=== PATIENT | male | born 2000 | race Two or more races ===

== ENCOUNTER 2023-09-25 11:48 | Observation (INO) ==
--- NOTE | 2023-09-25 12:10 | DR.EXTPAIN ---
HPI Time seen Time Seen by Provider: 09/25/23 12:09 PCP Primary Care Physician: KARAN Complaint/Symptoms Chief Complaint Doctor Comments: 22 y/o H male presents for evaluation. Patient hit his left great toe with a lawnmower prior to arrival. Was wearing boots.. Has a significant wound to the left great toe, missing tissue. No other injuries. No recent tetanus shot. Denies recent illness.. Last ate approximately 1 hour ago. Chief Complaint:: Patient does not speak estonian, has a co worker at bedside translating. Patient states that his foot got caught in the lawnmower blade, cut his left great toe through his shoe. toe is mangled and bleeding. COVID-19 Coronavirus risk:travel/contact w/high risk person: No Has patient experienced Coronavirus symptoms: No Nurses notes reviewed Nurses Notes Review: Yes Source History Provided: Patient and Friend Mode of arrival Mode of Arrival: Wheelchair Timing Onset of Chief Complaint: 09/25/23 PMH PMH Past Medical History: No Past Surgical History: No Surgical History: No History Family History History of Family Medical Conditions: No Social History Does patient currently use any type of tobacco product: No Alcohol Use: None Do you use any recreational Drugs:: No Lives With: Other Lives Where: [place] Travel Risk Coronavirus risk:travel/contact w/high risk person: No Has patient experienced Coronavirus symptoms: No Infectious screening Have you traveled outside the country in the last 6 months?: Yes Travel History Location: came here from [place] 2 months ago Isolation: Standard ROS Review of Systems Constitutional: No Symptoms Reported Eyes: No Symptoms Reported ENTM: No Symptoms Reported Respiratoy: No Symptoms Reported Cardiovascular: No Symptoms Reported Gastrointestinal/Abdominal: No Symptoms Reported Genitourinary: No Symptoms Reported Neurological: No Symptoms Reported Musculoskeletal: See HPI Integumentary: No Symptoms Reported Hematologic/Lymphatic: No Symptoms Reported All Other Systems: Reviewed and Negative PE Vital Signs Vitals: Vital Signs Temperature 98.2 F Pulse Rate 52 Respiratory Rate 20 Respiratory Rate 20 Blood Pressure 115/68 O2 Sat by Pulse Oximetry 100 General General Appearance: Alert and In No Apparent Distress Eyes Eye exam: PERRL and EOMI ENT ENT Exam: Mucous Membranes Moist Neck Neck Exam: Normal Inspection Respiratory Respiratory Exam: Normal Lung Sounds Bilat; negative Accessory Muscle Use or Respiratory Distress Cardiovascular Cardiovascular Exam: Regular Rate, Normal Rhythm and Normal Heart Sounds Neurological Neurological Exam: Alert, Oriented X3 and CN II-XII Intact; negative Motor Sensory Deficit Skin Skin Exam: Warm and Dry Other Exam Other Exam: L foot - + 3 cm round open wound of dorsal great toe, scalloped out. + bone exposed. COURSE Treatment Treatment: 22-year-old male hit his left great toe with a lawnmower. Has a large loss of tissue of the dorsal aspect of the left great toe. X-ray obtained. Large amount of bone loss of the distal phalanx, proximal phalanx intact. IV started. Patient given IV fluids, IV morphine/Zofran. Will check baseline labs. Consult with podiatry, Dr. Ku. 1404 - Dr Ku here, will be taking the patient to the OR. 1448 - will be admitted after OR. ROR Labs Reviewed Laboratory Results Reviewed?: Yes 09/25/23 12:35 09/25/23 12:35 Laboratory: WBC 7.1 X10^3/uL (3.6-10.0) 09/25/23 12:35 RBC 4.94 X10^6/uL (4.7-6.0) 09/25/23 12:35 Hgb 14.7 g/dL (13.5-18.0) 09/25/23 12:35 Hct 43.3 % (42.0-54.0) 09/25/23 12:35 MCV 87.6 fL (80.0-100.0) 09/25/23 12:35 MCH 29.7 pg (27.0-34.0) 09/25/23 12:35 MCHC 33.9 g/dL (33.0-35.0) 09/25/23 12:35 RDW 13.2 % (11.6-16.5) 09/25/23 12:35 Plt Count 165 X10^3/uL (150.0-450.0) 09/25/23 12:35 MPV 9.5 fL (7.4-11.0) 09/25/23 12:35 Neut % (Auto) 66.0 % (42.0-75.0) 09/25/23 12:35 Lymph % (Auto) 23.9 % (21.0-51.0) 09/25/23 12:35 Pepin % (Auto) 6.7 % (0.0-13.0) 09/25/23 12:35 Eos % (Auto) 3.2 % (0.9-2.9) H 09/25/23 12:35 Baso % (Auto) 0.2 % (0.2-1.0) 09/25/23 12:35 Neut # (Auto) 4.7 x10^3/uL (2.2-4.8) 09/25/23 12:35 Lymph # (Auto) 1.7 X10^3/uL (1.3-2.9) 09/25/23 12:35 Pepin # (Auto) 0.5 x10^3/uL (0.3-0.8) 09/25/23 12:35 Eos # (Auto) 0.2 x10^3/uL (0.0-0.2) 09/25/23 12:35 Baso # (Auto) 0.0 X10^3/uL (0.0-0.1) 09/25/23 12:35 Absolute Nucleated RBC 0.3 /100WBC 09/25/23 12:35 Sodium 139 mmol/L (136-145) 09/25/23 12:35 Corrected Sodium 140 mmol/L (136-145) 09/25/23 12:35 Potassium 4.1 mmol/L (3.5-5.1) 09/25/23 12:35 Chloride 103 mmol/L (98-107) 09/25/23 12:35 Carbon Dioxide 28.7 mmol/L (21-32) 09/25/23 12:35 BUN 20 mg/dL (7-18) H 09/25/23 12:35 Creatinine 1.16 mg/dL (0.70-1.30) 09/25/23 12:35 Est GFR (MDRD) Af Amer > 60 (>60) 09/25/23 12:35 Est GFR (MDRD) Non-Af > 60 (>60) 09/25/23 12:35 Glucose 155 mg/dL (65-99) H 09/25/23 12:35 Calcium 8.8 mg/dL (8.5-10.1) 09/25/23 12:35 Corrected Calcium TNP 09/25/23 12:35 Total Bilirubin 0.50 mg/dL (0.2-1.0) 09/25/23 12:35 AST 16 Units/L (15-37) 09/25/23 12:35 ALT 28 Units/L (12-78) 09/25/23 12:35 Alkaline Phosphatase 90 Units/L (46-116) 09/25/23 12:35 Total Protein 6.9 g/dL (6.4-8.2) 09/25/23 12:35 Albumin 4.0 g/dL (3.4-5.0) 09/25/23 12:35 Globulin 2.9 g/dL (2.5-4.5) 09/25/23 12:35 Albumin/Globulin Ratio 1.4 Ratio (1.1-2.1) 09/25/23 12:35 Labs acceptable XRAY XRAY Interpreted by: Both X-ray Results: EXAM: FOOT, LEFT HISTORY: ATTN; TO LEFT GREAT TOE HIT WITH OB/GYN; COMPARISON: None FINDINGS: Comminuted fracture of the 1st distal phalanx. No convincing radiopaque foreign body. The remaining visualized osseous structures appear intact. Surrounding edema in the 1st digit. The talus and calcaneus appear intact. IMPRESSION: Fracture of the 1st distal phalanx. THIS IS AN ELECTRONICALLY VERIFIED FINAL REPORT 09/25/2023 1:03 PM - Electronically signed by Alfred Mccollum MD Opioid Opioid Risk Tool Age (Zaki box if 16-45): Yes History of Preadolescent Sexual Abuse: No Total: 1 Total Score Risk Category: Low Risk Copyright: [facility] predicting aberrant behaviors Discharge Plan Diagnosis Discharge Problem: Partial traumatic amputation of left great toe Discharge Plan Patient Disposition: ADMITTED INPATIENT Condition: Stable Prescriptions: No Action [facility] Concerns: Post Hospitalization: new medications and changes needed to prevent readmission or further decline. Pt educated and given instructions on all concerns. Plan of Treatment: Continue with present treatment and follow up plan. Pt is to keep follow up appointment as instructed and take medications as ordered. Follow ups/Referrals Follow ups/Referrals: KARAN,None [Primary Care Provider] - 3 days
[2023-09-25] MEDS: MORPHINE SULFATE INJ 4 MG IVP ONE (12:41)
[2023-09-25] MEDS: ZOFRAN INJ 4 MG VIAL IVP ONE (12:41)
[2023-09-25] MEDS: NS 1,000 ML IV 1,000 ML IV ONE (12:42)
[2023-09-25 12:50] LABS: BASOPHILS % (AUTO) 0.2 % (0.2-1.0); EOSINOPHILS # (AUTO) 0.2 x10^3/uL (0.0-0.2); EOSINOPHILS % (AUTO) 3.2 % (0.9-2.9); HEMATOCRIT 43.3 % (42.0-54.0); HEMOGLOBIN 14.7 g/dL (13.5-18.0); LYMPHOCYTES # (AUTO) 1.7 X10^3/uL (1.3-2.9); LYMPHOCYTES % (AUTO) 23.9 % (21.0-51.0); MEAN CORPUSCULAR HEMOGLOBIN 29.7 pg (27.0-34.0); MEAN CORPUSCULAR HGB CONC 33.9 g/dL (33.0-35.0); MEAN CORPUSCULAR VOLUME 87.6 fL (80.0-100.0); MEAN PLATELET VOLUME 9.5 fL (7.4-11.0); MONOCYTES # (AUTO) 0.5 x10^3/uL (0.3-0.8); MONOCYTES % (AUTO) 6.7 % (0.0-13.0); NEUTROPHILS # (AUTO) 4.7 x10^3/uL (2.2-4.8); PLATELET COUNT 165 X10^3/uL (150.0-450.0); RED BLOOD COUNT 4.94 X10^6/uL (4.7-6.0); RED CELL DISTRIBUTION WIDTH 13.2 % (11.6-16.5); WHITE BLOOD COUNT 7.1 X10^3/uL (3.6-10.0)
[2023-09-25] MEDS: ADACEL or BOOSTRIX TDaP VACCINE IM ONE (12:51)
[2023-09-25 12:59] LABS: ALANINE AMINOTRANSFERASE 28 Units/L (12-78); ALKALINE PHOSPHATASE 90 Units/L (46-116); ASPARTATE AMINO TRANSFERASE 16 Units/L (15-37); BLOOD UREA NITROGEN 20 mg/dL (7-18); CALCIUM 8.8 mg/dL (8.5-10.1); CARBON DIOXIDE 28.7 mmol/L (21-32); CHLORIDE 103 mmol/L (98-107); COR NA(FOR HYPERGLY) 140 mmol/L (136-145); CREATININE 1.16 mg/dL (0.70-1.30); GLUCOSE 155 mg/dL (65-99); POTASSIUM 4.1 mmol/L (3.5-5.1); SODIUM 139 mmol/L (136-145); TOTAL PROTEIN 6.9 g/dL (6.4-8.2); eGFR NON BLACK RACES > 60 (>60)
--- NOTE | 2023-09-25 13:06 | RAD ---
EXAM:FOOT, LEFTHISTORY:ATTN; TO LEFT GREAT TOEHIT WITH PRINCIPAL NETWORK ARCHITECT;COMPARISON:NoneFINDINGS:Comminuted fracture of the 1st distal phalanx. No convincing radiopaque foreign body. The remaining visualized osseous structures appear intact. Surrounding edema in the 1st digit. The talus and calcaneus appear intact.IMPRESSION:Fracture of the 1st distal phalanx.THIS IS AN ELECTRONICALLY VERIFIED FINAL REPORT09/25/2023 1:03 PM - Electronically signed by Alfred Mccollum MD
[2023-09-25] MEDS: ANCEF VIAL 1 GRAM ONE (14:10)
[2023-09-25] MEDS: NS 100 ML IV 100 ML ONE (14:11)
[2023-09-25 14:14] VITALS: BMI 26.3
[2023-09-25] MEDS: LR 1,000 ML IV 1,000 ML IV ONE (14:16)
[2023-09-25] MEDS: FENTANYL VIAL INJ 100 mcg ONE (14:18)
[2023-09-25] MEDS: VERSED ONE (14:18)
--- NOTE | 2023-09-25 14:25 | DR.CONSULT ---
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 was [place] to ER. no trauma to other part of the body. Past Surgical History Surgical History: No History Social History Alcohol Use: None Medications Home Medications: No Known Allergies Allergy (Verified 09/25/23 12:01) CONTINUE taking the following medications NK 09/25/23 [History] Physical Exam Vital Signs: Vital Signs Temperature 98.2 F Pulse Rate 52 Respiratory Rate 20 Respiratory Rate 20 Blood Pressure 115/68 O2 Sat by Pulse Oximetry 100 Musculoskeletal: Foot (left foot hallux. has traumatic amputation of the toe at the IPJ. exposed bone tendon, artery and with bleeding. has hematoma in base and is dirty contaminated. plantar skin of toe still attached. has perfusion. ) Plan (1) Partial traumatic amputation of left great toe: Status: Acute Narrative Support Text: will need washout of toe. has not eaten since yesterday. will plan MAC with local with washout and flap for closure. (2) Displaced fracture of distal phalanx of left great toe, initial encounter for open fracture: Status: Acute Narrative Support Text: bone not viable and has been 80% removed traumatically from distal toe. will wash out and likely can salvage proximal phalanx. will see how does may need 23 hr obs admission. plan for OR. has friend bedside providing translation as he only speaks lithuanian.
[2023-09-25] MEDS: DIPRIVAN VIAL 20 ML ONE (14:49)
[2023-09-25] MEDS: PRECEDEX INJ VIAL ONE (14:49)
[2023-09-25] MEDS ORDERED: ZOFRAN INJ 4 MG VIAL IVP PRN (15:03)
[2023-09-25] MEDS: ANCEF VIAL 1 GRAM 2 G in NS 100 ML IV 100 ML IV SCH (21:16)
[2023-09-25] MEDS: COLACE CAP 100 MG PO SCH (21:16)
[2023-09-25] MEDS: NOZIN NASAL SANITIZER TP SCH (21:16)
[2023-09-25] MEDS ORDERED: ANCEF VIAL 1 GRAM IVP SCH (22:00)
[2023-09-26] MEDS: PERCOCET TAB 5/325 MG PO PRN (01:15)
[2023-09-26 05:21] VITALS: TEMP 98.6
[2023-09-26 05:53] LABS: BLOOD UREA NITROGEN 14 mg/dL (7-18); CALCIUM 8.7 mg/dL (8.5-10.1); CARBON DIOXIDE 26.9 mmol/L (21-32); CHLORIDE 104 mmol/L (98-107); COR NA(FOR HYPERGLY) 140 mmol/L (136-145); CREATININE 1.06 mg/dL (0.70-1.30); GLUCOSE 117 mg/dL (65-99); POTASSIUM 3.9 mmol/L (3.5-5.1); SODIUM 140 mmol/L (136-145); eGFR NON BLACK RACES > 60 (>60)
[2023-09-26] MEDS: TYLENOL 325 MG TAB PO PRN (06:04)
--- NOTE | 2023-09-26 08:25 | NOTE.SOAP ---
Soap Note Note for Day of Date of Exam: 09/26/23 Subjective Data Subjective Data: Patient is POD1 s/p Partial hallux amputation of the left foot. Doing well, patient does not speak czech but he had no complaints other than pain. No constitutional symptoms noted Objective Data Objective Data: Flap is viable with a good capillary refill, incision is coapted with no sign of dehiscence. No erythema or edema noted. Neurovascular status intact. Assessment Assessment: S/p Partial hallux amputation, left foot Mangled foot Plan Plan: Patient doing well this am; dressing change performed with xeroform DSD. PWB with heel touch in a surgical shoe. Ok for discharge with norco and keflex. Patient is to follow up with Dr. Ku within one week of discharge in his office or sooner if any problems arise. Patient is to keep dressing c/d/i until the follow up visit
--- NOTE | 2023-09-26 09:25 | DR.OPNOTE ---
OP NOTE Pre-Op Diagnosis: mangled toe, left foot Post-Op Diagnosis: Same Procedure Date Date Of Procedure: 09/25/23 Procedure: Partial amputation of left hallux Type of Anesthesia: Local Findings: See dictation Specimen/Pathology: Cultures EBL: 10cc Drains/Tubes Comment: None Hardware: None Cultures: Yes from left foot Complications:: None Needle/Sponge Count:: Counted Disposition/Condition: Pt. tolerated procedure without difficulty. Extubated in the OR and taken to PACU in stable condition.
[2023-09-26 09:37] VITALS: PULSE 55
[2023-09-26 11:50] VITALS: RESP 18
[2023-09-26 12:08] VITALS: BP 132/74; O2SAT 98
== END 2023-09-26 12:10 | disposition home or self-care (01) ==
LOC: ER 11:48 → MED/SURG 11:48
PROVIDERS: ADMIT Obstetrics & Gynecology Obstetrics; ATTEND Obstetrics & Gynecology Obstetrics